=== PATIENT | male | born 1990 | race African-American/Black ===

== ENCOUNTER 2016-05-08 16:01 | Emergency (ER) | payer SELFPAY ==
[~2016-05-08] VITALS: Ht 177.8 cm; Wt 80.0 kg
[2016-05-08 16:03] VITALS: BP 126/63
== END 2016-05-08 19:09 | disposition left against medical advice (07) ==
LOC: ER 16:02
DX: F10.129 Alcohol abuse with intoxication, unspecified (principal); Z53.21 Procedure and treatment not carried out due to patient leaving prior to being seen by health care provider